=== PATIENT | male | born 1995 | race Caucasian/White ===

== ENCOUNTER 2019-06-26 21:03 | Emergency (ER) | payer OTHER ==
[~2019-06-26] VITALS: Ht 185.4 cm; Wt 112.3 kg
[2019-06-26 21:03] VITALS: BP 134/88
[2019-06-26] MEDS ORDERED: CEFD1CAP8 PO (21:10)
[2019-06-26] MEDS ORDERED: dayquil PO (21:10)
--- NOTE | 2019-06-27 01:12 | REP ---
Clinical: Fever . Comparison: None . Technique: PA and lateral. Findings: The mediastinum and cardiac silhouette are normal. The lung loza are clear and without acute consolidation, effusion, or pneumothorax. The skeletal structures are intact and normal. Impression: 1. No acute cardiopulmonary process. Electronically Signed by Matheus Stanford MD 06/27/2019 01:04 A
== END 2019-06-26 23:23 | disposition home or self-care (01) ==
LOC: M ED 21:03
DX: J32.9 Chronic sinusitis, unspecified (principal); H66.93 Otitis media, unspecified, bilateral; J45.909 Unspecified asthma, uncomplicated; Z88.0 Allergy status to penicillin